=== PATIENT | male | born 2000 | race African-American/Black ===

== ENCOUNTER 2022-12-14 14:36 | Emergency (ER) | payer OTHER, SELFPAY ==
[2022-12-14 14:44] VITALS: BP 132/76; PULSE 77; RESP 16; TEMP 35.9; O2SAT 99; BMI 24.2
--- NOTE | 2022-12-14 15:24 | ED.GENADULT ---
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 The girlfriend does not know if she has that are not in apparently there has not been tested or has not shared this with her with the patient. The patient did not post exposure prophylaxis for HIV exposure. He is completely asymptomatic, he was talking to the triage nurse about a headache and other issues and he does not really have this. He has most expo most concerned about posterior prophylaxis exposure. He has not had any HIV or other infectious illness, he has no dysuria frequency penile discharge, or other complaint. Related Data Allergies Allergy/AdvReac Type Severity Reaction Status Date / Time No Known Drug Allergies Allergy Verified 12/14/22 14:52 Review of Systems Status of ROS: Reports: 6 or more systems reviewed and unremarkable except as noted in History and below PFSH [facility] Social History Smoking Status: Never smoker Do you use any of these nicotine containing products: None Second hand tobacco smoke exposure: No How often do you have a drink containing alcohol: 2-4 times a month How many standard drinks containing alcohol do you have on a typical day: 1 or 2 How often do you have six or more drinks on one occasion: Less than monthly AUDIT-C Alcohol total score: 3 Non-prescribed substance use: denies use service: No Exam Narrative: Exam Narrative: Objective patient's vital signs unremarkable He denies any abdominal or back pain No dysuria frequency noted, no penile discharge, no rashes by his report. Const: Vital Signs, click to edit/add: Vital Signs - 24 hr 12/14/22 14:44 Temperature 96.7 F L Pulse Rate [Pulse Oximeter] 77 Respiratory Rate 16 Blood Pressure [Ri ght Upper Arm] 132/76 Pulse Oximetry 99 Oxygen Delivery Me thod Room Air Course Vital Signs Vital signs: Initial Vital Signs Temperature 96.7 F L 12/14/22 14:44 Temperature Source Temporal Artery Scan 12/14/22 14:44 Pulse Rate 77 12/14/22 14:44 Pulse Rhythm 12/14/22 14:44 Respiratory Rate 16 12/14/22 14:44 Blood Pressure 132/76 12/14/22 14:44 Blood Pressure Mean 94 12/14/22 14:44 Blood Pressure Position Supine 12/14/22 14:44 Pulse Oximetry 99 12/14/22 14:44 Oxygen Delivery Method 12/14/22 14:44 Vital Signs Temperature 96.7 F L 12/14/22 14:44 Pulse Rate 77 12/14/22 14:44 Respiratory Rate 16 12/14/22 14:44 Blood Pressure 132/76 12/14/22 14:44 Pulse Oximetry 99 12/14/22 14:44 Oxygen Delivery Method 12/14/22 14:44 Temperature 96.7 F L 12/14/22 14:44 Pulse Rate 77 12/14/22 14:44 Respiratory Rate 16 12/14/22 14:44 Blood Pressure 132/76 12/14/22 14:44 Pulse Oximetry 99 12/14/22 14:44 Oxygen Delivery Method 12/14/22 14:44 Medical Decision Making MDM Narrative Medical decision making narrative: 22-year-old black male with possible exposure to HIV interested in post exposure prophylaxis. At this point I would recommend that we do a HIV test for him at a baseline, and then also would do post exposure prophylaxis. Will have her pharmacy figure out medications for him. And prescribed as needed. Would be helpful if he would talk to his sexual contact about perhaps testing herself. He should have follow-up testing in 3 months Addendum: The patient will have an HIV level drawn, he should repeat this in 3 months. He also received a prescription for the recommended course of ISENTRESS and Truvada. He will get 5 days out of the stock here and then we will get him prescriptions for the additional medication. Will inform him of his results when it returns, and he should repeat this in 3 months as mention. Would encourage his sexual partner to get tested as well. Discharge Plan Discharge Clinical Impression: On pre-exposure prophylaxis for HIV Patient Disposition: Home, Self-Care Condition: Stable Additional Instructions: Recommend sexual contact be tested for HIV. Would also recommend repeat test for [place] in 3 months. Will arrange post exposure prophylaxis. Return if any other symptoms that are concerning, or dysuria, frequency, or other concerns Activity Level: No Restrictions Discharge Diet: Regular Stand Alone Forms: [employer] Info Instructions
[2022-12-14] MEDS: RALTEGRAVIR POTASSIUM 400 MG TABLET PO (16:06)
[2022-12-14] MEDS: EMTRICITABINE/TENOFOVIR 200-300MG TABLET 1 TAB PO (16:06)
[2022-12-16 20:35] LABS: HIV Serologic Interpretation HIV Abs Neg; HIV-1 Antibody Negative (Negative); HIV-2 Antibody Negative (Negative)
[2022-12-17 17:00] LABS: HIV-1 Qnt NAAT copies/mL Not Detected log cpy/mL
== END 2022-12-14 16:12 | disposition home or self-care (01) ==
LOC: ED 15:32
PROVIDERS: Emergency Provider Family Medicine
DX: Z20.6 Contact with and (suspected) exposure to human immunodeficiency virus [HIV] (principal)
CPT/HCPCS: 36415; 86701; 86702; 87502; 87536; 87634; 87635; 99283